=== PATIENT | female | born 1950 | race Caucasian/White ===

== ENCOUNTER 2017-10-19 19:40 | Emergency (ER) | payer MEDICARE ==
[2017-10-19 20:41] VITALS: BP 142/71
[2017-10-19] MEDS ORDERED: Tetracaine HCl/PF 0.5% 4 ML Bottle EYERT ONE (22:21)
--- NOTE | 2017-10-19 22:42 | EDM.PDOC ---
ED HPI GENERAL MEDICAL PROBLEM - General Chief Complaint: Eye Problems Stated Complaint: FLOATERS IN EYE Time Seen by Provider: 10/19/17 21:45 Source of Information: Reports: Family History Limitations: Reports: Other (Patient is non-focal. She is unable to give almost any history whatsoever other than she feels some kind of discomfort but can't describe it) - History of Present Illness INITIAL COMMENTS - FREE TEXT/NARRATIVE: This lady is brought in by a young woman I think it may be her daughter and the eye complaint is is very very vague the daughter says that they've been told that she has some floaters and also that latanoprost was stopped a little over one week ago. The patient really can't give me any kind of vocal complaints when I asked her about her left eye she sort of puts her hand over the eye and insert pulls away with her fingers I and mutters something like the word hair. I 'm unable to tell if she is having pain or not she can't tell me that she can't even indicate yes or no that she's having pain. I can't assess whether she can see anything at all. The younger woman says that she's been having these symptoms for about 3 days and they're getting worse. Left Eye Pain Score (Numeric/FACES): 4 - Related Data Allergies Allergy/AdvReac Type Severity Reaction Status Date / Time doxycycline Allergy Vaginitis Verified 10/19/17 20:42 latex Allergy Rash Verified 10/19/17 20:42 Home Meds: Home Meds Donepezil HCl [Aricept Odt] 5 mg PO DAILY 01/06/14 [History] FLUoxetine HCl [Fluoxetine HCl] 40 mg PO DAILY 01/06/14 [History] Fluticasone Furoate [Veramyst] 2 spray NS DAILY 01/06/14 [History] Furosemide [Lasix] 20 mg PO DAILY 01/06/14 [History] Gabapentin [Neurontin] 300 mg PO BEDTIME 01/06/14 [History] Montelukast [Singulair] 10 mg PO DAILY 01/06/14 [History] atorvaSTATin [Lipitor] 10 mg PO BEDTIME 01/06/14 [History] metFORMIN [metFORMIN XR] 500 mg PO BIDM 01/06/14 [History] Past Medical History HEENT History: Reports: Other (See Below) Other HEENT History: floaters in eye Neurological History: Reports: CVA Other Neuro History: aneurysm 1999 Endocrine/Metabolic History: Reports: Diabetes, Type II Social & Family History - Tobacco Use Smoking Status *Q: Never Smoker - Caffeine Use Caffeine Use: Reports: Coffee - Alcohol Use Days Per Week of Alcohol Use: 0 - Recreational Drug Use Recreational Drug Use: No ED ROS GENERAL - Review of Systems Review Of Systems: Unable To Obtain (This lady is unable to give review of systems) ED EXAM GENERAL W FULL EYE - Physical Exam Exam: See Below Exam Limited By: No Limitations General Appearance: Alert, Mild Distress, Thin Eye Exam: Bilateral Eye: PERRL Eyelids: Bilateral: Normal Appearance Conjunctiva & Sclera: Bilateral: Normal Appearance Cornea Exam: Bilateral: Normal Appearance Extraocular Movements: Bilateral: Intact Pupillary Size: Bilateral: 2 mm Pupillary Reaction: Bilateral: Brisk Anterior Chamber: Bilateral: Normal Appearance Comments: I am unable to do a funduscopic exam on this patient through an undilated pupil. Since she's been on latanoprost I assume that she has glaucoma so I don' t dilate her pupils. I did ballottement on both globes and they appear to be equal. We are unable to do tonometry due to some malfunctioning equipment. I instilled 2 drops of tetracaine in the left eye but the patient isn't able to tell me whether or not it made any difference. Course - Vital Signs Last Recorded V/S: Last Vital Signs Temp 36.7 C 10/19/17 20:39 Pulse 69 10/19/17 20:39 Resp 16 10/19/17 20:39 BP 142/71 H 10/19/17 20:39 Pulse Ox 96 10/19/17 20:39 - Orders/Labs/Meds Meds: Medications Discontinued Medications Generic Name Dose Route Start Last Admin Trade Name Freq PRN Reason Stop Dose Admin Tetracaine HCl 1 ml 10/19/17 22:21 10/19/17 22:25 Tetracaine 0.5% Steri-Unit Pamela EYERT 10/19/17 22:22 1 drop ASDIRECTED ONE Administration Departure - Departure Time of Disposition: 22:42 Disposition: Home, Self-Care 01 Condition: Fair Clinical Impression: Eye discomfort - Discharge Information Referrals: Daniel Mccall Sr, MD [Primary Care Provider] - Additional Instructions: Start using the latanoprost as before. See your eye doctor on Saturday. You're welcome to return to the ER at any time if needed.
== END 2017-10-19 22:59 | disposition home or self-care (01) ==
LOC: JP.ED 19:40
DX: H57.12 Ocular pain, left eye (principal); E11.9 Type 2 diabetes mellitus without complications; Z79.84 Long term (current) use of oral hypoglycemic drugs; Z79.899 Other long term (current) drug therapy; Z88.1 Allergy status to other antibiotic agents; Z91.040 Latex allergy status
CPT/HCPCS: 99283; A9270